=== PATIENT | female | born 1940 | race Caucasian/White ===

== ENCOUNTER → 2020-08-24 | Outpatient (CLI) | payer MEDICARE ==
--- NOTE | 2020-08-24 17:50 | CT ---
EXAMINATION TYPE: CT abdomen pelvis wo/w con DATE OF EXAM: 08/24/2020 COMPARISON: NONE HISTORY: 79-year-old female Abdominal pain and diarrhea. TECHNIQUE: Contiguous axial scanning of the abdomen and pelvis before and after administration of 100 ml Isovue 300 IV contrast. Delayed images through the kidneys and coronal/sagittal reconstructions performed. CT DLP: 2376 mGycm Automated exposure control for dose reduction was used. FINDINGS: Heart normal size without pericardial effusion. Lung bases clear without pleural effusion. There is both Harrison fundoplication with recurrent hiatal hernia that seems to include the fundoplica tion. No focal liver lesion. Portal venous system is patent. Mild prominence to the main pancreatic duct up to 4 mm. Bile duct borderline at 6 mm, acceptable give n patient's age. No distal obstructing lesion is seen. Gallbladder upper limits of normal in caliber at 3.9 cm. No surrounding inflammation. Right adrenal gland and spleen appear within normal limits. 1 cm nodularity left adrenal gland. Vague 1.1 cm hypodensity posterior junction of the body and tail of the pancreas could represent unde rlying cystic lesion. Small 1 cm cortical cyst right kidney. Left kidney is surgically absent. Mild atherosclerotic calcifications abdominal aorta without aneurysm. No dilated small bowel, free fluid, or free air. No mesenteric or retroperitoneal lymphadenopathy. Oral contrast has progressed ascending colon. Left-sided clonic diverticulosis greatest in the mid to distal sigmoid colon. No pericolonic inflammatory change. Bladder is urine distended. Uterus anteverted. Both ovaries are visualized. Left-sided pelvic phlebol ith. There is a staple line at the rectoanal junction from prior resection and re-anastomosis. No abn ormal fluid collection in the pelvis or pelvic lymphadenopathy. Focal presacral soft tissue thickening probably secondary to posttreatment change, axial image 61. Bones: Osteitis pubis. Mild/moderate degenerative change bilateral hip joint. 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 Baa strup's disease. IMPRESSION: 1. STATUS POST HARRISON FUNDOPLICATION WITH WRAP HERNIATION. PATIENT CAN BE REFERRED BACK TO THEIR SURG LEANDRO TO ASSESS FOR ANY RECURRENT SYMPTOMS AND FOR FURTHER MANAGEMENT. 2. STATUS POST RESECTION AND REANASTOMOSIS AT THE RECTOANAL JUNCTION. SOME FOCAL SOFT TISSUE THICKENI NG IN THE PRESACRAL REGION AT THIS SAME LEVEL PROBABLY REPRESENTS POSTSURGICAL/POSTTREATMENT CHANGE. CORRELATE TO THE REASON FOR PATIENT'S SURGERY. IF INDICATED, 3 MONTH FOLLOW-UP CT CAN ASSESS FOR S TABILITY OF THE PRESACRAL FINDING. 3. RECOMMEND 3-6 MONTH FOLLOW-UP PANCREAS MRI TO ASSESS FOR A POSSIBLE SMALL 1.1 CM MASS versus CYSTI C AREA AT THE JUNCTION OF THE PANCREATIC TAIL AND BODY. 4. A 1 CM LEFT ADRENAL NODULE STATISTICALLY REPRESENTS A BENIGN ADRENAL ADENOMA. HOWEVER, GIVEN THE Catherine MCKEON'S PRIOR LEFT NEPHRECTOMY, THIS CAN ALSO BE REASSESSED AT THE PATIENT'S FOLLOW-UP. AGAIN, CORRE LATE TO THE REASON FOR PATIENT'S SURGERY.
== END | disposition home or self-care (01) ==
LOC: RADCTMAIN 12:39
PROVIDERS: ATTEND Internal Medicine Gastroenterology
DX: Z01.812 Encounter for preprocedural laboratory examination (principal); D35.02 Benign neoplasm of left adrenal gland; R19.7 Diarrhea, unspecified; R10.9 Unspecified abdominal pain
CPT/HCPCS: 82565; 84520; 74178; 36415; Q9967